=== PATIENT | male | born 1965 | race Two or more races ===

== ENCOUNTER 2024-11-20 19:05 | Emergency (ER) | payer OTHER ==
[~2024-11-20] VITALS: Ht 182.9 cm; Wt 120.0 kg
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
[2024-11-20] MEDS: KETOROLAC TROMETH 60MG/2ML VIAL IM ONE (20:00)
[2024-11-20] MEDS: HYDROcodone-ACET 10/325MG TAB PO ONE (20:00)
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
[2024-11-20] MEDS ORDERED: METH4PAK PO (22:01)
[2024-11-20] MEDS ORDERED: TIZA-142 PO (22:01)
[2024-11-20 22:23] VITALS: BP 132/89; PULSE 81; RESP 20; TEMP 97.2; O2SAT 99
== END 2024-11-20 22:24 | disposition home or self-care (01) ==
LOC: ER 19:05
DX: S13.4XXA Sprain of ligaments of cervical spine, initial encounter (principal); S46.911A Strain of unspecified muscle, fascia and tendon at shoulder and upper arm level, right arm, initial encounter; S76.011A Strain of muscle, fascia and tendon of right hip, initial encounter; S76.911A Strain of unspecified muscles, fascia and tendons at thigh level, right thigh, initial encounter; V43.52XA Car driver injured in collision with other type car in traffic accident, initial encounter; Y93.89 Activity, other specified; Y92.410 Unspecified street and highway as the place of occurrence of the external cause; Y99.8 Other external cause status
CPT/HCPCS: 72125; 72131; 73700; J1885